=== PATIENT | male | born 1980 | race Caucasian/White ===

== ENCOUNTER 2021-02-07 23:54 | Emergency (ER) | payer OTHER, MEDICAID ==
[~2021-02-07] VITALS: Ht 182.9 cm; Wt 72.6 kg
[2021-02-08 02:30] VITALS: BP 108/56
== END 2021-02-08 02:42 | disposition home or self-care (01) ==
LOC: ER 23:54
DX: S93.601A Unspecified sprain of right foot, initial encounter (principal); M79.642 Pain in left hand; F91.8 Other conduct disorders; V47.5XXA Car driver injured in collision with fixed or stationary object in traffic accident, initial encounter; Y93.89 Activity, other specified; Y35.893A Legal intervention involving other specified means, suspect injured, initial encounter; Y92.488 Other paved roadways as the place of occurrence of the external cause; R03.0 Elevated blood-pressure reading, without diagnosis of hypertension; Z78.1 Physical restraint status
CPT/HCPCS: 71045; 73130; 73630; 93005; 99285